=== PATIENT | female | born 1980 | race Caucasian/White ===

== ENCOUNTER → 2020-12-29 10:04 | Outpatient (CLI) | payer OTHER, SELFPAY ==
[2020-12-29 11:09] LABS: Add Manual Diff / Slide Review NO; Basophils Absolute Auto 100 /uL (0-100); Basophils Percent Auto 0.8 % (0-2); Eosinophils Absolute Auto 100 /uL (0-450); Eosinophils Percent Auto 1.6 % (2-4); Hematocrit 38.1 % (36-46); Hemoglobin 12.7 g/dL (12.0-16.0); Lymphocytes Absolute Auto 2200 /uL (1100-4500); Lymphocytes Percent Auto 23.6 % (25-40); Mean Corpuscular HGB Conc 33.2 % (30-36); Mean Corpuscular Hemoglobin 29.8 PG (26-34); Mean Corpuscular Volume 89.7 fL (80-100); Monocytes Absolute Auto 600 /uL (0-900); Monocytes Percent Auto 6.2 % (3-14); Neutrophils Absolute Auto 6200 /uL (1500-7000); Neutrophils Percent Auto 67.8 % (50-75); Platelet Count 353 X10^3/uL (150-400); Red Blood Cell Count 4.25 X10^6/uL (4.0-5.2); Red Cell Distribution Width 13.4 % (11.6-14.8); White Blood Cell Count 9.1 X10^3/uL (4.5-11.0)
[2020-12-29 11:49] LABS: Alanine Aminotransferase 21 IU/L (<35); Albumin 4.7 g/dL (3.5-5.0); Albumin Globulin Ratio 1.4 (1.0-2.8); Alkaline Phosphatase 79 U/L (38-126); Aspartate Aminotransferase 24 IU/L (14-36); BUN Creatinine Ratio 17.2 (6-22); Bilirubin Total 0.3 mg/dL (0.2-1.3); Blood Urea Nitrogen 16 mg/dL (7-17); Carbon Dioxide 29 mmol/L (22-32); Chloride 100 mmol/L (98-107); Estimated Glomerular Filt Rate > 60.0 mL/min (>60); Globulin 3.4 g/dL (1.7-4.1); Glucose 107 mg/dL (70-100); HEMOLYSIS < 15 (0-50); Potassium 4.5 mmol/L (3.4-5.1); Sodium 137 mmol/L (137-145); Total Protein 8.1 g/dL (6.3-8.2)
[2020-12-29 11:57] LABS: Appearance Urine UA CLEAR; Bilirubin Urine UA NEGATIVE (NEGATIVE); Color Urine UA YELLOW; Glucose Urine UA NEGATIVE (Negative); Ketones Urine UA NEGATIVE (NEGATIVE); Leukocyte Esterase Urine UA NEGATIVE (NEGATIVE); Nitrite Urine UA NEGATIVE (Negative); Occult Blood Urine UA NEGATIVE (Negative); Protein Urine UA NEGATIVE (Negative); Specific Gravity Urine UA 1.025 (1.000-1.035); Urobilinogen Urine UA 0.2 E.U./dL (0.2)
[2020-12-29 12:01] LABS: Free T4, Direct Thyroxine 0.95 ng/dL (0.78-2.19)
[2020-12-29 12:15] LABS: pH Urine UA 5.5 (4.5-8.0)
[2020-12-29 12:15] LABS: Thyroid Stimulating Hormone 0.729 uIU/mL (0.47-4.68)
[2020-12-31 12:31] LABS: Lamotrigine Lamictal 9.8 ug/mL (2.0-20.0)
== END ==
PROVIDERS: Referring Provider Psychiatry & Neurology Psychiatry; Visit Provider Psychiatry & Neurology Psychiatry
DX: F31.81 Bipolar II disorder (principal)
CPT/HCPCS: 36415; 80053; 80175; 81003; 84439; 84443; 85025

== ENCOUNTER 2021-07-06 10:30 | Emergency (ER) | payer OTHER, SELFPAY ==
--- NOTE | 2021-07-06 11:01 | DI.RAD.S_ITS ---
PROCEDURE: XR CHEST 1V INDICATIONS: Chest pain TECHNIQUE: One view of the chest was acquired. COMPARISON: [facility], CR, XR CHEST 1 VIEW [facility], 10/27/2020, 11:57. FINDINGS: Surgical changes and devices: None. Lungs and pleura: Lungs are clear. No pleural effusions or pneumothorax. Mediastinum: Mediastinal contours appear normal. Heart size is normal. Bones and chest wall: No suspicious bony lesions. Overlying soft tissues appear unremarkable. IMPRESSION: No acute cardiopulmonary abnormality. Dictated by: Brian Durant M.D. on 07/06/2021 at 11:25 Approved by: Brian Durant M.D. on 07/06/2021 at 11:32
[2021-07-06 11:07] VITALS: BP 133/77; PULSE 117; RESP 22; TEMP 37; O2SAT 100; BMI 35.4
[2021-07-06 11:16] LABS: Add Manual Diff / Slide Review NO; Basophils Absolute Auto 100 /uL (0-100); Basophils Percent Auto 0.7 % (0-2); Eosinophils Absolute Auto 100 /uL (0-450); Eosinophils Percent Auto 1.6 % (2-4); Hemoglobin 12.8 g/dL (12.0-16.0); Lymphocytes Absolute Auto 2200 /uL (1100-4500); Lymphocytes Percent Auto 23.5 % (25-40); Mean Corpuscular HGB Conc 33.7 % (30-36); Mean Corpuscular Hemoglobin 29.6 PG (26-34); Mean Corpuscular Volume 87.8 fL (80-100); Monocytes Absolute Auto 600 /uL (0-900); Monocytes Percent Auto 6.6 % (3-14); Neutrophils Absolute Auto 6200 /uL (1500-7000); Neutrophils Percent Auto 67.6 % (50-75); Platelet Count 352 X10^3/uL (150-400); Red Blood Cell Count 4.33 X10^6/uL (4.0-5.2); Red Cell Distribution Width 13.7 % (11.6-14.8); White Blood Cell Count 9.2 X10^3/uL (4.5-11.0)
[2021-07-06 11:18] LABS: Alanine Aminotransferase 23 IU/L (<35); Albumin 4.6 g/dL (3.5-5.0); Albumin Globulin Ratio 1.4 (1.0-2.8); Alkaline Phosphatase 76 U/L (38-126); Aspartate Aminotransferase 27 IU/L (14-36); BUN Creatinine Ratio 10.6 (6-22); Bilirubin Total 0.5 mg/dL (0.2-1.3); Blood Urea Nitrogen 11 mg/dL (7-17); Calcium 9.6 mg/dL (8.4-10.2); Carbon Dioxide 27 mmol/L (22-32); Chloride 100 mmol/L (98-107); Creatine Kinase 48 U/L (30-135); Estimated Glomerular Filt Rate 58.1 mL/min (>60); Globulin 3.3 g/dL (1.7-4.1); Glucose 114 mg/dL (70-100); HEMOLYSIS < 15 (0-50); Lipase 61 U/L (23-300); Sodium 137 mmol/L (137-145); Total Protein 7.9 g/dL (6.3-8.2)
[2021-07-06 11:24] VITALS: PULSE 106; RESP 12; O2SAT 100
[2021-07-06 11:30] LABS: Troponin I < 0.012 ng/mL (0.01-0.034)
--- NOTE | 2021-07-06 11:43 | ED.CHESTPAIN ---
HPI - Chest Pain General Chief Complaint: Chest Pain Stated Complaint: chest pain Time Seen by Provider: 07/06/21 11:00 Source: patient and other Mode of arrival: other Limitations: no limitations History of Present Illness HPI narrative: Patient is a 40-year-old female. Has a history of anxiety and bipolar disorder. Is on medications for these. Also has history of reflux disease. Is on a proton pump inhibitor. Last evening started to have pain in her chest. She states that was associated with some pressure. Was not worse with palpation or movement or breathing. She took a clonazepam which did not change her discomfort at all. She has had panic attacks in the past that have presented is chest pain but she felt like this was somewhat different. She also took a dose of her reflux medicine. This also did not improve any of her symptoms. Symptoms have been consistent since last evening until approximately 0800 hours this morning. She had a scheduled appointment with her mental health provider today. Brought up the symptoms that she presented with and was instructed to come to the emergency department for further evaluation. Related Data Home Medications Medication Instructions Recorded Confirmed acetaminophen 500 mg capsule 1,000 mg PO Q6H PRN 12/29/20 07/06/21 irnzexp-gdxwsrqczjvrf-fhsomyzs 250 2 tab PO Q6H PRN 12/29/20 07/06/21 mg-250 mg-65 mg tablet (Excedrin Migraine) biotin 5 mg capsule 5 mg PO DAILY 12/29/20 07/06/21 buspirone 30 mg tablet 60 mg PO DAILY tab 12/29/20 07/06/21 calcium carbonate 400 mg calcium 400 mg PO DAILY 12/29/20 07/06/21 (1,000 mg) chewable tablet (Tums Ultra) cholecalciferol (vitamin D3) 50 50 mcg PO DAILY 12/29/20 07/06/21 mcg (2,000 unit) capsule clobetasol 0.05 % scalp solution 1 applic TOPICAL DAILY 12/29/20 07/06/21 clonazepam 0.5 mg tablet 0.5 mg PO DAILY PRN 12/29/20 07/06/21 fluticasone furoate 100 1 inh INHALATION DAILY 12/29/20 07/06/21 mcg/actuation blister powder for inhalation ketoconazole 2 % topical cream 1 applic TOPICAL DAILY 12/29/20 07/06/21 lamotrigine 300 mg tablet,extended 300 mg PO DAILY 12/29/20 07/06/21 release 24 hr loratadine 5 mg disintegrating 5 mg PO ONCE 12/29/20 07/06/21 tablet (Claritin RediTabs) minoxidil 5 % topical foam ea TOPICAL 12/29/20 07/06/21 (Rogaine) naproxen sodium 220 mg capsule 220 mg PO BID PRN 12/29/20 07/06/21 (Aleve) pseudoephedrine HCl 120 mg 120 mg PO Q12H PRN 12/29/20 07/06/21 tablet,extended release (Sudafed 12 Hour) spironolactone 50 mg tablet 50 mg PO DAILY 12/29/20 07/06/21 trazodone 150 mg tablet 150 mg PO BEDTIME PRN 12/29/20 07/06/21 zolpidem 5 mg tablet 5 mg PO BEDTIME PRN 12/29/20 07/06/21 esomeprazole magnesium 20 mg 20 mg PO DAILY 06/09/21 07/06/21 capsule,delayed release Previous Rx's Medication Instructions Recorded tizanidine 4 mg capsule 4 mg PO BEDTIME #30 cap 03/17/21 methylphenidate HCl 20 mg 20 mg PO DAILY #30 tab 06/09/21 tablet,extended release Allergies Allergy/AdvReac Type Severity Reaction Status Date / Time desvenlafaxine [From Pristiq] AdvReac Severe Suicidal Verified 07/06/21 10:11 Ideation lithium AdvReac Severe hypomanic Verified 07/06/21 10:11 state Review of Systems Constitutional Constitutional: Denies headache(s) ENT Ears, Nose, Mouth, and Throat: Denies headache(s) Cardiovascular Cardiovascular: Reports as per HPI and Reports system reviewed and no additional complaints, except as documented Respiratory Respiratory: Reports as per HPI and Reports system reviewed and no additional complaints, except as documented Gastrointestinal Gastrointestinal: Reports as per HPI and Reports system reviewed and no additional complaints, except as documented Musculoskeletal Musculoskeletal: Reports system reviewed and no additional complaints, except as documented Integumentary/Breasts Skin/Breast: Reports system reviewed and no additional complaints, except as documented Neurologic Neurologic: Denies headache(s) Hematologic/Lymphatic On Anticoagulants: No Allergic/Immunologic Allergic/Immunologic: Reports system reviewed and no additional complaints, except as documented Patient History Medical History ADHD (attention deficit hyperactivity disorder), combined type Bipolar II disorder Gastroesophageal reflux disease Generalized anxiety disorder Social History Smoking Status: Never smoker Smoking Status: Never smoker alcohol intake frequency: 0-2 drinks per day Substance Use Type: does not use Exam Initial Vital Signs Initial Vital Signs: Vital Signs Temperature 98.6 F 07/06/21 11:07 Pulse Rate 117 H 07/06/21 11:07 Respiratory Rate 22 07/06/21 11:07 Blood Pressure 133/77 07/06/21 11:07 Pulse Oximetry 100 07/06/21 11:07 Const General: cooperative, comfortable, well developed and well groomed Limitations: mental status not altered HENMT Head: normal to inspection and normocephalic Chest Chest: normal inspection of the chest Breast inspection: normal inspection of the breasts Resp Effort & Inspection: normal respiratory effort Auscultation: clear to auscultation bilaterally Cardio Rate: regular rate Rhythm: regular rhythm GI Inspection: non-distended Palpation: soft, No firm and No tender Back/Spine/Pelvis Back: normal to inspection Skin Lesions: no lesions Rashes: no rashes Neuro General: patient alert, patient awake, patient oriented x3 and moves all extremities Extrem General: normal to inspection and capillary refill normal Psych Appearance: grossly normal and well kempt Course Orders Ordered: ED Orders 07/06/21 10:48 Complete Blood Count AUTO DIFF Stat Comprehensive Metabolic Panel Stat Lipase Stat Troponin & CK Cardiac Panel Stat 07/06/21 11:01 XR chest 1V Stat 07/06/21 11:05 EKG-12 Lead Stat Vital Signs Vital signs: Vital Signs - 8 hr 07/06/21 11:07 Temperature 98.6 F Pulse Rate 117 H Respiratory Rate 22 Blood Pressure 133/77 Pulse Oximetry 100 MDM - Chest Pain Lab Data Attestation: I reviewed the patient's lab results. Result diagrams: 07/06/21 10:48 07/06/21 10:48 Labs: Lab Results 07/06/21 07/06/21 Range/Units 10:48 10:48 WBC 9.2 (4.5-11.0) X10^3/uL RBC 4.33 (4.0-5.2) X10^6/uL Hgb 12.8 (12.0-16.0) g/dL Hct 38.0 (36-46) % MCV 87.8 (80-100) fL MCH 29.6 (26-34) PG MCHC 33.7 (30-36) % RDW 13.7 (11.6-14.8) % Plt Count 352 (150-400) X10^3/uL Neut % (Auto) 67.6 (50-75) % Lymph % (Auto) 23.5 L (25-40) % Davie % (Auto) 6.6 (3-14) % Eos % (Auto) 1.6 L (2-4) % Baso % (Auto) 0.7 (0-2) % Neut # (Auto) 6200 (9051-6403) /uL Lymph # (Auto) 2200 (6670-9905) /uL Davie # (Auto) 600 (0-900) /uL Eos # (Auto) 100 (0-450) /uL Baso # (Auto) 100 (0-100) /uL Sodium 137 (137-145) mmol/L Potassium 4.0 (3.4-5.1) mmol/L Chloride 100 (98-107) mmol/L Carbon Dioxide 27 (22-32) mmol/L BUN 11 (7-17) mg/dL Creatinine 1.04 (0.52-1.04) mg/dL Estimated GFR 58.1 L (>60) mL/min BUN/Creatinine Ratio 10.6 (6-22) Glucose 114 H (70-100) mg/dL Calcium 9.6 (8.4-10.2) mg/dL Total Bilirubin 0.5 (0.2-1.3) mg/dL AST 27 (14-36) IU/L ALT 23 (<35) IU/L Alkaline Phosphatase 76 (38-126) U/L Total Creatine Kinase 48 (30-135) U/L CK-MB (CK-2) TNP CK-MB (CK-2) Rel Index TNP Troponin I < 0.012 (0.01-0.034) ng/mL Total Protein 7.9 (6.3-8.2) g/dL Albumin 4.6 (3.5-5.0) g/dL Globulin 3.3 (1.7-4.1) g/dL Albumin/Globulin Ratio 1.4 (1.0-2.8) Lipase 61 (23-300) U/L Imaging Data Chest x-ray: Radiologist's Impression: [address] [address] XRay Report Signed Patient: Marcela Wei MR#: [id number] : 1980 Acct:[id number] Age/Sex: 40 / F Date of Service: 07/06/21 Loc: ED Accession Number: [id number] ?? Procedure: XR chest 1V Ordering Provider: Jose Infante D.O. PROCEDURE:? XR CHEST 1V ? INDICATIONS:? Chest pain ? TECHNIQUE:? One view of the chest was acquired.? ? COMPARISON:? [facility], , XR CHEST 1 VIEW [facility], 10/27/2020, 11:57. ? FINDINGS:? ? Surgical changes and devices:? None.? ? Lungs and pleura:? Lungs are clear.? No pleural effusions or pneumothorax.? ? Mediastinum:? Mediastinal contours appear normal.? Heart size is normal.? ? Bones and chest wall:? No suspicious bony lesions.? Overlying soft tissues appear unremarkable.? ? IMPRESSION:? No acute cardiopulmonary abnormality. ? ? Dictated by: Brian Durant M.D. on 07/06/2021 at 11:25 ? ? Approved by: Brian Durant M.D. on 07/06/2021 at 11:32?? ECG Data Attestation: I personally reviewed and interpreted this ECG as follows: Prior ECG tracings: not available for review Interpretation: Sinus tachycardia Ventricular rate 112 Normal axis Normal QRS Normal QTC No ST T wave changes MDM Narrative Medical decision making narrative: Low suspicion for ACS. Chest x-ray is unremarkable. EKG shows sinus tachycardia but no other signs of ischemia. I did consider pulmonary embolism however despite her tachycardia her symptoms today are not consistent with this. I feel that we should hold on any further radiologic studies for now. This potentially could be reflux disease. Patient will continue to take her reflux medications. Has a negative troponin greater than 12 hours of the onset of her symptoms. We did discuss return precautions and follow-up instructions. Patient expressed understanding agreement. Discharge Plan Departure Patient Disposition: Home Clinical Impression: Atypical chest pain Instructions: DI for Atypical Chest Pain Activity Restrictions/Additional Instructions: Recommend that you continue to take all of your medications as directed. Contact your primary doctor for a follow-up. Return to the emergency department for any new or worsening symptoms Prescriptions: No Action tizanidine 4 mg capsule 4 mg PO BEDTIME Qty: 30 3RF esomeprazole magnesium 20 mg capsule,delayed release(DR/EC) 20 mg PO DAILY 0RF methylphenidate HCl 20 mg tablet extended release 20 mg PO DAILY Qty: 30 0RF spironolactone 50 mg tablet 50 mg PO DAILY 0RF zolpidem 5 mg tablet 5 mg PO BEDTIME PRN0RF calcium carbonate [Tums Ultra] 400 mg calcium (1,000 mg) tablet,chewable 400 mg PO DAILY 0RF biotin 5 mg capsule 5 mg PO DAILY 0RF buspirone 30 mg tablet 60 mg PO DAILY 0RF cholecalciferol (vitamin D3) 50 mcg (2,000 unit) capsule 50 mcg PO DAILY 0RF fluticasone furoate 100 mcg/actuation blister with device 1 inh inhalation DAILY 0RF lamotrigine 300 mg tablet extended release 24hr 300 mg PO DAILY 0RF ketoconazole 2 % cream 1 applic topical DAILY 0RF minoxidil [Rogaine] 5 % foam topical 0RF acetaminophen 500 mg capsule 1,000 mg PO Q6H PRN0RF Claritin RediTabs 5 mg tablet,disintegrating 5 mg PO ONCE 0RF clobetasol 0.05 % solution 1 applic topical DAILY 0RF clonazepam 0.5 mg tablet 0.5 mg PO DAILY PRN0RF Excedrin Migraine 250-250-65 mg tablet 2 tab PO Q6H PRN0RF trazodone 150 mg tablet 150 mg PO BEDTIME PRN0RF naproxen sodium [Aleve] 220 mg capsule 220 mg PO BID PRN0RF pseudoephedrine HCl [Sudafed 12 Hour] 120 mg tablet extended release 120 mg PO Q12H PRN0RF
[2021-07-06 11:47] VITALS: PULSE 96; O2SAT 99
[2021-07-06 12:00] VITALS: BP 111/70; PULSE 90; RESP 16; O2SAT 100
== END 2021-07-06 12:22 | disposition home or self-care (01) ==
PROVIDERS: Emergency Provider Emergency Medicine
DX: R07.9 Chest pain, unspecified (principal); R00.0 Tachycardia, unspecified
CPT/HCPCS: 36415; 71045; 80053; 82550; 83690; 84484; 85025; 93005; 99284

== ENCOUNTER → 2024-08-02 09:53 | Outpatient (CLI) | payer OTHER, SELFPAY ==
[2024-08-02 10:41] LABS: Lithium 0.8 mmol/L (0.6-1.2)
== END ==
PROVIDERS: Referring Provider Psychiatry & Neurology Psychiatry; Visit Provider Psychiatry & Neurology Psychiatry
DX: F31.81 Bipolar II disorder (principal); Z79.899 Other long term (current) drug therapy
CPT/HCPCS: 36415; 80178

== ENCOUNTER → 2024-12-13 13:56 | Outpatient (CLI) | payer OTHER, SELFPAY ==
[2024-12-13 15:55] LABS: TSH w/ Reflex to FT4 1.44 uIU/mL (0.47-4.68)
[2024-12-13 16:01] LABS: Ferritin 58 ng/mL (6-137)
== END ==
LOC: LAB 13:59
DX: L65.9 Nonscarring hair loss, unspecified (principal)
CPT/HCPCS: 36415; 82728; 84432; 84443; 86800